=== PATIENT | male | born 1960 | race Caucasian/White ===

== ENCOUNTER → 2018-05-07 | Outpatient (CLI) | payer OTHER | LOC: CAT 10:29 | DX: Z13.6 Encounter for screening for cardiovascular disorders (principal) ==

== ENCOUNTER → 2020-04-25 | Outpatient (CLI) | payer OTHER | LOC: ULTRA 09:06 | PROVIDERS: ATTEND Family Medicine | DX: I86.1 Scrotal varices (principal); L72.9 Follicular cyst of the skin and subcutaneous tissue, unspecified; N50.89 Other specified disorders of the male genital organs ==

== ENCOUNTER 2020-07-13 23:07 | Emergency (ER) | payer OTHER ==
[~2020-07-13] VITALS: Ht 190.5 cm; Wt 122.5 kg
[2020-07-14 01:11] VITALS: BP 131/83
== END 2020-07-14 01:12 | disposition home or self-care (01) ==
LOC: ER 23:07
DX: T15.01XA Foreign body in cornea, right eye, initial encounter (principal); Z90.89 Acquired absence of other organs; Z98.890 Other specified postprocedural states; X58.XXXA Exposure to other specified factors, initial encounter; Y93.89 Activity, other specified; Y92.89 Other specified places as the place of occurrence of the external cause; Y99.8 Other external cause status